=== PATIENT | male | born 1995 | race Caucasian/White ===

== ENCOUNTER 2023-11-13 23:40 | Inpatient (IN) | payer SELFPAY ==
[~2023-11-13] VITALS: Ht 170.2 cm; Wt 85.8 kg
[2023-11-13 23:52] VITALS: O2SAT 99
[2023-11-14 00:52] LABS: BASOPHILS % 0.3 % (0.0-2.0); EOSINOPHILS % 1.6 % (0.0-5.0); HEMATOCRIT. 47.6 % (42.0-52.0); HEMOGLOBIN. 16.4 g/dL (14.0-18.0); MEAN CORPUSCULAR HEMOGLOBIN 31.3 pg (28.0-32.0); MEAN CORPUSCULAR HGB CONC 34.4 g/dL (31.0-37.0); MONOCYTES % 6.2 % (2.0-8.0); NEUTROPHILS % 58.9 % (40.0-76.0); PLATELET 204 x1000/uL (130-400); RED BLOOD CELL COUNT 5.24 mill/uL (4.7-6.1); RED CELL DISTRIBUTION WIDTH 12.9 % (11.6-14.6); WHITE BLOOD COUNT 7.8 x1000/uL (4.5-11.0)
[2023-11-14 00:58] LABS: CHLORIDE 103 mEq/L (98-107); POTASSIUM 3.1 mEq/L (3.5-5.1); SODIUM 139 mEq/L (136-145)
[2023-11-14 00:59] LABS: CALCIUM 9.3 mg/dL (8.7-10.4); CARBON DIOXIDE 28 mEq/L (21-32)
[2023-11-14 01:04] LABS: GLUCOSE 152 mg/dL (70-105); UREA NITROGEN BLOOD 8 mg/dL (9-23)
[2023-11-14 01:05] LABS: ETHANOL BLOOD < 10 mg/dL (<10)
[2023-11-14 04:35] LABS: CLARITY URINE CLEAR (CLEAR); COLOR URINE YELLOW (YELLOW); GLUCOSE URINE NEGATIVE (NEGATIVE); KETONES URINE NEGATIVE (NEGATIVE); LEUKOCYTE ESTERASE URINE NEGATIVE (NEGATIVE); NITRITE URINE NEGATIVE (NEGATIVE); OCCULT BLOOD URINE NEGATIVE (NEGATIVE); PH URINE 7.5 (4.5-8.0); PROTEIN URINE NEGATIVE (NEGATIVE)
[2023-11-14 04:44] LABS: *AMPHETAMINES SCREEN URINE NEGATIVE (NEGATIVE); *BARBITURATES SCREEN URINE NEGATIVE (NEGATIVE); *BENZODIAZEPINES SCREEN URINE NEGATIVE (NEGATIVE); *COCAINE SCREEN URINE NEGATIVE (NEGATIVE); METHADONE URINE SCREEN NEGATIVE (NEGATIVE); OPIATES URINE SCREEN NEGATIVE (NEGATIVE); PHENCYCLIDINE URINE SCREEN NEGATIVE (NEGATIVE)
[2023-11-14 04:45] LABS: CANNABINOID URINE SCREEN PRESUMPTIVE POSITIVE (NEGATIVE); ECSTASY MDMA SCREEN URINE NEGATIVE (NEGATIVE)
[2023-11-14] MEDS ORDERED: MAGNESIUM/ALUMINUM HYDROXIDE/SIMETHICONE 30ML UDC PO PRN (09:30)
[2023-11-14] MEDS ORDERED: IPRATROPIUM/ALBUTEROL 0.5-3(2.5)MG/3ML NEB HHN PRN (09:30)
[2023-11-14] MEDS ORDERED: ONDANSETRON HCL 4MG/2ML INJ IV PRN (09:30)
[2023-11-14] MEDS ORDERED: CLONIDINE 0.1MG TABLET PO PRN (09:30)
[2023-11-14] MEDS ORDERED: GUAIFENESIN 200MG/10ML SUGAR FREE UDC PO PRN (09:30)
[2023-11-14] MEDS ORDERED: ACETAMINOPHEN 325MG TABLET PO PRN ×2 (09:30)
[2023-11-14 10:30] VITALS: BP 116/68; PULSE 60; RESP 16; TEMP 97.3
[2023-11-14] MEDS: PANTOPRAZOLE SODIUM 40 MG/VIAL IV SCH (10:42)
[2023-11-14] MEDS: SODIUM CHLORIDE 0.9% 1,000 ML IV SCH (10:43)
[2023-11-14] MEDS: POTASSIUM CHLORIDE 20MEQ/PACKET PO NR (10:43)
[2023-11-14] MEDS ORDERED: DEXTROSE 50% WATER 50ML SYRINGE IV PRN (11:45)
[2023-11-14 12:00] VITALS: BP 116/58; PULSE 66; RESP 16; TEMP 97.3
[2023-11-14 12:33] LABS: TRIGLYCERIDE 78 mg/dL (0-150)
[2023-11-14 12:34] LABS: LDL CHOLESTEROL 114 mg/dL (5-100)
[2023-11-14 12:35] LABS: ALANINE AMINOTRANSFERASE 15 IU/L (10-49); ALBUMIN 4.9 g/dL (3.2-4.8); ASPARTATE AMINOTRANSFERASE 18 IU/L (<34); BILIRUBIN DIRECT 0.2 mg/dL (<=3.0); BILIRUBIN TOTAL 0.6 mg/dL (0.1-1.0); CHOLESTEROL 165 mg/dL (<200); HDL CHOLESTEROL 46 mg/dL (>55); PHOSPHORUS 3.7 mg/dL (2.5-4.9)
[2023-11-14 12:36] LABS: PROTEIN TOTAL 7.7 g/dL (6.0-8.3)
[2023-11-14 12:38] LABS: T4 FREE 1.28 ng/dL (0.89-1.76); THYROID STIMULATING HORMONE 0.39 uIU/mL (0.55-4.78)
[2023-11-14] MEDS: BLOOD SUGAR DIAGNOSTIC STRIP TEST SCH (12:40)
[2023-11-14 16:00] VITALS: BP 120/66; PULSE 60; RESP 16; TEMP 97.5
== END 2023-11-14 16:55 | disposition left against medical advice (07) | DRG 52 ==
LOC: ER 23:40 → 7WST 11-14 01:11 → EDBEDREQTM 11-14 01:21 → EDBEDREQSVC 11-14 01:21 → EDBEDREQ 11-14 01:21 → ER 11-14 08:18
PROVIDERS: ADMIT Internal Medicine; ATTEND Internal Medicine
DX: G92.8 Other toxic encephalopathy (principal); E87.6 Hypokalemia; R73.9 Hyperglycemia, unspecified; Z53.29 Procedure and treatment not carried out because of patient's decision for other reasons; T40.715A Adverse effect of cannabis, initial encounter; Z79.899 Other long term (current) drug therapy; Y92.89 Other specified places as the place of occurrence of the external cause
CPT/HCPCS: 36415; 71045; 80048; 80061; 80076; 80305; 80320; 81003; 82962; 83036; 83735; 84100; 84439; 84443; 85025; 99285; J2470; G0480